=== PATIENT | female | born 1985 | race Caucasian/White ===

== ENCOUNTER 2017-01-24 19:44 | Emergency (ER) | payer OTHER ==
[~2017-01-24] VITALS: Ht 157.5 cm; Wt 63.5 kg
[~2017-01-24 19:44] MED LIST: BENTYL 20 MG TA20 M1 PO; GENTAMICIN OPH3.5 G1 OPHTHALMIC; IBUPROFEN 600600 M1 PO; NORCO 5-325 TA1 EACH PO; PHENERGAN 25 MG25 M1 PO; TOBREX5 ML OPHTHALMIC; VIGAMOX3 ML OP; ZOFRAN4 MG PO
[2017-01-24 20:00] VITALS: BP 133/86
[2017-01-24] MEDS ORDERED: ONDANSETRON HCL4 M2 PO (20:44)
[2017-01-24] MEDS ORDERED: FLONASE 0.05%50 MCG NASAL (20:44)
== END 2017-01-24 21:00 | disposition home or self-care (01) ==
LOC: ER 19:44
DX: J06.9 Acute upper respiratory infection, unspecified (principal); R51 Headache; R11.0 Nausea; F17.210 Nicotine dependence, cigarettes, uncomplicated